=== PATIENT | female | born 1955 | race Two or more races ===

== ENCOUNTER → 2022-01-03 | Outpatient (CLI) | payer BC ==
[2022-01-03 09:34] LABS: BASOPHILS % 0.1 % (0.0-2.0); EOSINOPHILS % 1.6 % (0.0-5.0); HEMATOCRIT. 39.5 % (36.0-48.0); HEMOGLOBIN. 13.2 g/dL (12.0-16.0); LYMPHOCYTES % 33.6 % (20.0-50.0); MEAN CORPUSCULAR HEMOGLOBIN 26.9 pg (28.0-32.0); MEAN CORPUSCULAR VOLUME 80.4 fL (81.0-99.0); MEAN PLATELET VOLUME 8.5 fl (7.4-10.4); MONOCYTES % 4.6 % (2.0-8.0); NEUTROPHILS % 60.1 % (40.0-76.0); PLATELET 220 x1000/uL (130-400); RED BLOOD CELL COUNT 4.91 mill/uL (4.2-5.4); RED CELL DISTRIBUTION WIDTH 14.6 % (11.6-14.6)
[2022-01-03 09:47] LABS: CLARITY URINE CLEAR (CLEAR); COLOR URINE YELLOW (YELLOW); KETONES URINE NEGATIVE (NEGATIVE); LEUKOCYTE ESTERASE URINE 1+ (NEGATIVE); NITRITE URINE NEGATIVE (NEGATIVE); OCCULT BLOOD URINE 1+ (NEGATIVE); PROTEIN URINE NEGATIVE (NEGATIVE); SPECIFIC GRAVITY URINE 1.022 (1.005-1.030); UROBILINOGEN URINE 0.2 E.U./dL (0.2-1.0)
[2022-01-03 09:49] LABS: CHLORIDE 106 mEq/L (98-107)
[2022-01-03 10:04] LABS: HDL CHOLESTEROL 62 mg/dL (40-59); LDL CHOLESTEROL 120 mg/dL (5-100)
[2022-01-07 17:09] LABS: 25-HYDROXY VITAMIN D3 19 ng/mL (.)
== END | disposition home or self-care (01) ==
LOC: LAB 08:59
PROVIDERS: ATTEND Internal Medicine
DX: Z00.00 Encounter for general adult medical examination without abnormal findings (principal); R73.03 Prediabetes; E78.5 Hyperlipidemia, unspecified
CPT/HCPCS: 36415; 80053; 80061; 81003; 82306; 83036; 84443; 85025

== ENCOUNTER 2022-05-08 12:57 | Emergency (ER) | payer BC ==
[~2022-05-08] VITALS: Ht 160 cm; Wt 79.0 kg
[2022-05-08 13:15] VITALS: BP 166/124
[2022-05-08] MEDS ORDERED: GUAI-450 MT (16:37)
== END 2022-05-08 19:12 | disposition home or self-care (01) ==
LOC: ER 12:57
DX: B34.9 Viral infection, unspecified (principal); I10 Essential (primary) hypertension; E11.9 Type 2 diabetes mellitus without complications; Z20.822 Contact with and (suspected) exposure to COVID-19; Z88.2 Allergy status to sulfonamides; Z88.0 Allergy status to penicillin
CPT/HCPCS: 71045; 87426; 87804; 99284; C9803

== ENCOUNTER → 2022-06-11 | Outpatient (CLI) | payer BC ==
[~2022-06-11] MED LIST: GUAI-450 MT
[2022-06-11 14:40] LABS: BASOPHILS % 0.2 % (0.0-2.0); EOSINOPHILS % 1.9 % (0.0-5.0); HEMATOCRIT. 34.6 % (36.0-48.0); HEMOGLOBIN. 11.5 g/dL (12.0-16.0); LYMPHOCYTES % 27.9 % (20.0-50.0); MEAN CORPUSCULAR HEMOGLOBIN 26.6 pg (28.0-32.0); MEAN CORPUSCULAR VOLUME 80.3 fL (81.0-99.0); MEAN PLATELET VOLUME 8.4 fl (7.4-10.4); MONOCYTES % 3.2 % (2.0-8.0); NEUTROPHILS % 66.8 % (40.0-76.0); PLATELET 259 x1000/uL (130-400); RED BLOOD CELL COUNT 4.31 mill/uL (4.2-5.4); RED CELL DISTRIBUTION WIDTH 15.2 % (11.6-14.6)
[2022-06-11 14:50] LABS: CHLORIDE 103 mEq/L (98-107)
[2022-06-11 15:06] LABS: HDL CHOLESTEROL 71 mg/dL (40-59); LDL CHOLESTEROL 116 mg/dL (5-100)
[2022-06-11 21:08] LABS: CLARITY URINE CLEAR (CLEAR); COLOR URINE YELLOW (YELLOW); KETONES URINE NEGATIVE (NEGATIVE); LEUKOCYTE ESTERASE URINE NEGATIVE (NEGATIVE); NITRITE URINE NEGATIVE (NEGATIVE); OCCULT BLOOD URINE NEGATIVE (NEGATIVE); PROTEIN URINE NEGATIVE (NEGATIVE); SPECIFIC GRAVITY URINE 1.012 (1.005-1.030); UROBILINOGEN URINE 0.2 E.U./dL (0.2-1.0)
== END | disposition home or self-care (01) ==
LOC: LAB 13:35
PROVIDERS: ATTEND Internal Medicine
DX: E78.5 Hyperlipidemia, unspecified (principal); E11.9 Type 2 diabetes mellitus without complications; E55.9 Vitamin D deficiency, unspecified; R30.0 Dysuria
CPT/HCPCS: 36415; 80053; 80061; 81003; 82306; 83036; 85025

== ENCOUNTER 2022-07-12 20:20 | Emergency (ER) | payer BC ==
[~2022-07-12] VITALS: Ht 160 cm; Wt 98.0 kg
[2022-07-12] MEDS ORDERED: IBUPROFEN 600MG TABLET PO ONE (20:30)
[2022-07-12] MEDS ORDERED: CYCL10TA21 MT (23:43)
[2022-07-12] MEDS ORDERED: IBUP-2029 MT (23:43)
[2022-07-12] MEDS ORDERED: KETOROLAC 60MG/2ML VIAL IM ONE (23:45)
[2022-07-13 00:10] VITALS: BP 95/62
== END 2022-07-13 00:12 | disposition home or self-care (01) ==
LOC: ER 20:20
DX: S00.83XA Contusion of other part of head, initial encounter (principal); S30.0XXA Contusion of lower back and pelvis, initial encounter; E11.9 Type 2 diabetes mellitus without complications; F41.9 Anxiety disorder, unspecified; Z87.442 Personal history of urinary calculi; Z98.890 Other specified postprocedural states; Z88.2 Allergy status to sulfonamides; Z88.0 Allergy status to penicillin; W01.0XXA Fall on same level from slipping, tripping and stumbling without subsequent striking against object, initial encounter; Y93.89 Activity, other specified; Y92.481 Parking lot as the place of occurrence of the external cause; Y99.8 Other external cause status
CPT/HCPCS: 70450; 70486; 72125; 72131; 96372; 99285; J1885; L0172

== ENCOUNTER → 2022-09-17 | Outpatient (CLI) | payer OTHER ==
[~2022-09-17] MED LIST changes: +CYCL10TA21 MT; +IBUP-2029 MT
== END | disposition home or self-care (01) ==
LOC: MRI 10:41
PROVIDERS: ATTEND Family Medicine Adult Medicine
DX: S09.90XA Unspecified injury of head, initial encounter (principal); X58.XXXA Exposure to other specified factors, initial encounter; Y93.89 Activity, other specified; Y92.89 Other specified places as the place of occurrence of the external cause; Y99.8 Other external cause status
CPT/HCPCS: 70551